=== PATIENT | female | born 1955 | race Caucasian/White ===

== ENCOUNTER 2024-05-23 16:55 | Observation (INO) ==
--- NOTE | 2024-05-23 17:45 | ED Triage Note ---
Date of Service May 23, 2024 Provider in Triage Author: Enzo Alston History of Present Illness This patient was briefly evaluated while in triage. An abbreviated physical exam was performed. This patient is a 69-year-old Female who presents to the ED for evaluation of injuries sustained from fall down attic steps. Pt reports low back pain and radiation into left leg. Pt denies head strike. States right knee pain, and pain in left side. Physical Exam Initial orders for labs and / or imaging were placed and patient was placed in the waiting area until a bed is available. Please see further documentation for the full ED course.
[2024-05-23 18:20] LABS: Basophils # (auto) 0.02 K/uL (0.00-0.20); Basophils % (auto) 0.3 %; Eosinophils # (auto) 0.02 K/uL (0.00-0.50); Eosinophils % (auto) 0.3 %; Hematocrit (blood only) 44.7 % (37.0-47.0); Hemoglobin 14.7 g/dl (12.0-16.0); Immature Granulocytes # (auto) 0.02 K/uL (0.01-0.20); Immature Granulocytes % (auto) 0.3 %; Lymphocytes # (auto) 0.95 K/uL (1.20-3.40); Lymphocytes % (auto) 16.3 %; Mean Corpuscular Hgb Conc 32.9 g/dL (32.0-36.0); Mean Corpuscular Volume 97.4 fL (80.0-100.0); Mean Platelet Volume 11.4 fL (9.4-12.4); Monocytes # (auto) 0.32 K/uL (0.11-0.59); Monocytes % (auto) 5.5 %; Neutrophils % (auto) 77.3 %; Platelet Count 123 K/uL (130-400); RDW Coefficient of Variation 14.6 % (11.5-14.5); RDW Standard Deviation 52.2 fL (36.4-46.3); Red Blood Count 4.59 M/uL (4.20-5.40); White Blood Count 5.83 K/ul (4.8-10.8)
--- NOTE | 2024-05-23 18:23 | Emergency Department Note ---
Impression & Plan Fall, Lumbar contusion, Contusion of flank, Contusion of knee, right ED Provider Note NAME: LEXI JAIN AGE: 69 SEX: F : 1955 ARRIVES VIA: Walk-In INFORMANT: Patient, ED PROVIDER(S): Enzo Alston DO CHIEF COMPLAINT: Fall HPI: The patient is a 69-year-old female who presented to the emergency department after a fall. Approximately 2 PM today she fell down approximately 4-5 steps. She mostly injured her left flank. She denies having any weakness in the legs but has severe pain with any ambulation. She has pain that goes up into her left posterior chest. She has a history of ITP. She states that she does not take any blood thinners. She does not complain of any headache or loss of conscious. She denies having any neck pain. ROS: See above HPI for pertinent positives & negatives. A total of 10 systems reviewed and were otherwise negative. PAST MEDICAL HISTORY: See Below PAST SURGICAL HISTORY: See Below FAMILY HISTORY: See Below SOCIAL HISTORY: See Below HOME MEDICATIONS: See Below ALLERGIES: See Below VITALS: See Below PHYSICAL EXAMINATION: GENERAL: The patient is awake and alert. She is very anxious and appears to be uncomfortable. EYES: The conjunctivae are clear. The pupils are round and reactive. EARS, NOSE, MOUTH AND THROAT: The nose is without any evidence of any deformity. NECK: The neck is nontender and supple. RESPIRATORY: Normal respiratory effort is noted there is no evidence of wheezing rhonchi or rales CARDIOVASCULAR: Regular rate and rhythm noted there no murmurs rubs or gallops normal S1 normal S2. GASTROINTESTINAL: There is left upper quadrant tenderness to palpation which is moderate. There is no specific guarding or rigidity. BACK: Midline tenderness was noted over the low lumbar spine as well as the left paravertebral musculature. Range of motion is intact but severely painful with any rotation or flexion. MUSCULOSKELETAL/EXTREMITIES: There is no evidence of gross deformity full range of motion is noted in the hips and shoulders. There is tenderness with abrasion over the right kneecap. Range of motion appears intact but limited secondary to pain. SKIN: There is no obvious evidence of any rash. There are no petechiae, pallor or cyanosis noted. NEUROLOGIC: Patient is awake alert and oriented x3 strength is symmetric patellar reflexes are 2+ bilaterally MEDICAL DECISION MAKING: The patient is a 69-year-old female who presented to the emergency department after a fall. The patient fell down multiple stairs. She did have significant left-sided flank pain. Because of the patient's degree of pain she was treated with IV pain medication. She was reevaluated multiple times. I discussed the patient's laboratory and radiographic studies with her. Likely the patient did not appear to have any signs of intra-abdominal or intrathoracic trauma. She had no obvious lumbar or thoracic injury. The patient had very poorly controlled pain despite aggressive pain medication in the emergency department. For this reason I discussed her condition with the on-call [facility] hospitalist. Triage Nursing notes reviewed. Prior medical records reviewed Vital Signs: reviewed and remarkable for no significant abnormalities Differential diagnosis: Fracture, dislocation, contusion, intra-abdominal, pneumothorax, intrathoracic, intracranial, neurologic, compartment syndrome, rhabdomyolysis, as well as other pathologies. ER treatment provided: See below Diagnostics interpreted by me: ECG: none Cardiac Monitoring: An order was placed for continuous cardiac monitoring. The monitor shows a rate of 102 bpm with sinus tachycardia. Laboratory studies: As stated above and show below. Imaging studies: See below. Radiographic imaging was reviewed by myself Consultation(s): I discussed this case with Dr. Sandoval who is on-call for the [facility]ist group. Past Med/Surg History Problem List (Updated 05/23/24 @ 23:30 by Enzo Alston DO) Contusion of knee, right (Acute) Contusion of flank (Acute) Lumbar contusion (Acute) Fall (Acute) Obesity (BMI 30.0-34.9) Laryngopharyngeal reflux Atypical nevus of back Epidermal cyst of eyelid Dermatochalasis of both upper eyelids Lumbar back pain with radiculopathy affecting left lower extremity Abnormal mammogram of right breast Thrombocytopenia Tear of tendon of left ankle Arthritis Lipoma of lateral chest wall Cholelithiasis Left ankle pain Atypical nevus of nose Snoring Knee pain, bilateral Lipoma of abdominal wall Hyperlipidemia Cervical pain (neck) Situational mixed anxiety and depressive disorder Lumbar degenerative disc disease (Chronic) Chronic idiopathic thrombocytopenic purpura (Chronic) Medical History Encounter for pre-operative examination Lumbar back pain with radiculopathy affecting left lower extremity Nausea and vomiting after administration of anesthetic agent Lumbar degenerative disc disease Hx of shortness of breath related to allergies, reason for prn inh. Situational mixed anxiety and depressive disorder Hyperlipidemia Chronic idiopathic thrombocytopenic purpura Cervical pain (neck) off and on, ROM WNL Arthritis Oral aphthous ulcer 03/14/24-none currently, but gets occasionally due to her ITP Surgical History History of laryngoscopy S/P excision of lipoma under left arm near ribs History of esophagogastroduodenoscopy (EGD) Hx of colonoscopy History of carpal tunnel release bilat. History of hysterectomy History of appendectomy Family History Brother Bipolar disorder Leukemia Cancer Father Heart disease Myocardial infarction Seizures Sister Breast cancer Grandmother Ovarian cancer Mother Parkinson disease Denies family history of Prostate cancer Colorectal cancer Social History Smoking Status: Never smoker Second Hand Exposure: Yes (hx as child); Do You Dip or Chew Tobacco: No; Hx Alcohol Use: No Hx Substance Use: No Preferred Language: Macedonian Communication Ability: Effective Visual Impairment: No Limitations Hearing Ability: Normal Puttying And Calking Supervisor Required: No Beliefs That Will Affect Care: None marital status: Current Living Situation: Spouse current occupational status: other current occupation: homemaker How many Children do You have: 2 Feels Safe at Home: Yes Childhood Exposure to Second-Hand Smoke: No during the past year weight has: increased > 10 lbs Dental Care, Regularly: Yes Physical Activity Frequency: 3-4 Times per Week Assistive Devices: Glasses Allergies Allergies Allergy/AdvReac Type Severity Reaction Status Date / Time erythromycin base Allergy severe Verified 04/16/24 08:13 vomiting oseltamivir [From Tamiflu] Allergy Unknown Verified 04/16/24 08:13 prednisone Allergy itching Verified 04/16/24 08:13 all over Home Meds Home Medications Medication Instructions Recorded Confirmed cetirizine 10 mg capsule (All Day 10 mg PO DAILY PRN Allergy Symptoms 11/03/21 05/01/24 Allergy (cetirizine)) esomeprazole magnesium 40 mg 40 mg PO .AM 04/16/24 05/01/24 capsule,delayed release (Nexium) famotidine 40 mg tablet (Pepcid) 40 mg PO HS 04/16/24 05/01/24 Previous Rx's Medication Instructions Recorded spacer tube #1 ea 05/16/21 albuterol sulfate 90 mcg/actuation 2 puff inhalation QID PRN 08/12/23 aerosol inhaler (ProAir HFA) shortness of breath or wheezing #8.5 grams lorazepam 0.5 mg tablet 0.5 mg PO QID PRN anxiety #60 tabs 01/14/24 cyclobenzaprine 5 mg tablet 5 mg PO TID PRN muscle spasm #90 02/06/24 tabs Magic Mouthwash 300 mL mouthwash 5 ml mucous membrane Q2H PRN sore 03/24/24 throat #300 mL phentermine 15 mg capsule 15 mg PO DAILY #30 caps 04/16/24 Results & Data (ED) Vital Signs Vital Signs - 24 hr 05/23/24 17:41 05/23/24 20:22 05/23/24 22:00 Temperature 36.3 C L Temperature Source Temporal Artery Scan Pulse Rate 128 H Pulse Rate [Finger] 95 H 102 H Respiratory Rate 18 16 20 Respiratory Effort / Characteristics Non-Labored Non-Labored Spontaneous Non-Labored Spontaneous Respiratory Depth Normal Normal Normal Respiratory Pattern Regular Regular Regular Blood Pressure 195/47 H Blood Pressure [Right Arm] 145/87 H 149/87 H Blood Pressure Mean 96 Blood Pressure Mean [Right Arm] 106 107 Pulse Oximetry 95 96 94 Oxygen Delivery Method Room Air Room Air Room Air Sepsis Recent Fever Within 48 Hours No Sepsis New/Unexplained Change in Mental Status N/A Sepsis Action Taken by Nursing No Action Required Home Medications Current Medication List: was personally reviewed by me Laboratory Data Attestation: I reviewed the patient's lab results. 05/23/24 18:02 05/23/24 18:02 Lab Results 05/23/24 05/23/24 Range/Units 18:02 18:58 WBC 5.83 (4.8-10.8) K/ul RBC 4.59 (4.20-5.40) M/uL Hgb 14.7 (12.0-16.0) g/dl Hct 44.7 (37.0-47.0) % MCV 97.4 (80.0-100.0) fL MCH 32.0 (25.0-34.0) pg MCHC 32.9 (32.0-36.0) g/dL RDW Std Deviation 52.2 H (36.4-46.3) fL RDW Coeff of Caty 14.6 H (11.5-14.5) % Plt Count 123 L (130-400) K/uL MPV 11.4 (9.4-12.4) fL Immature Gran % (Auto) 0.3 % Neut % (Auto) 77.3 % Lymph % (Auto) 16.3 % [place] % (Auto) 5.5 % Eos % (Auto) 0.3 % Baso % (Auto) 0.3 % Neut # (Auto) 4.50 (1.40-6.50) K/uL Lymph # (Auto) 0.95 L (1.20-3.40) K/uL [place] # (Auto) 0.32 (0.11-0.59) K/uL Eos # (Auto) 0.02 (0.00-0.50) K/uL Baso # (Auto) 0.02 (0.00-0.20) K/uL Immature Gran # (Auto) 0.02 (0.01-0.20) K/uL Sodium 141 (136-145) mmol/L Potassium 4.5 (3.5-5.1) mmol/L Chloride 108 H (98-107) mmol/L Carbon Dioxide 25 (21-32) mmol/L Anion Gap 8 (3-11) BUN 21 (6-23) mg/dl Creatinine 1.32 H (0.6-1.2) mg/dl Est Cr Clr Drug Dosing Not Reportable eGFR 43.98 BUN/Creatinine Ratio 15.9 (10-20) Glucose 123 H (70-99(Fasting)) mg/dl Calcium 9.8 (8.6-10.3) mg/dl Total Bilirubin 0.3 (0.2-1.0) mg/dl AST 32 (13-39) U/L ALT 42 (7-52) U/L Alkaline Phosphatase 113 H (34-104) U/L Total Protein 7.6 (6.0-8.3) gm/dl Albumin 4.6 (3.4-5.0) gm/dl Globulin 3.0 (2.5-4.0) gm/dl Albumin/Globulin Ratio 1.5 (0.9-2) Urine Color Yellow Urine Appearance Clear (Clear) Urine pH 6.5 (4.5-7.5) Ur Specific [place] 1.025 (1.000-1.030) Urine Protein Negative (Negative) Urine Glucose (UA) Negative (Negative) Urine Ketones Negative (Negative) Urine Blood Trace H (Negative) Urine Nitrite Negative (Negative) Urine Bilirubin Negative (Negative) Urine Urobilinogen Negative (Negative) Ur Leukocyte Esterase Negative (Negative) Urine WBC (Auto) 0-5 (0-5) /hpf Urine RBC (Auto) 3-5 H (0-2) /hpf U Hyaline Cast (Auto) 0-2 (0-2) /lpf U Epithel Cells (Auto) 0-2 (0-2) /hpf Urine Bacteria (Auto) None Seen (None Seen) Administered Medications Hydromorphone HCl (Hydromorphone Inj 0.5 Mg/0.5 Ml Syr) 0.5 mg IV Q15M PRN PRN Reason: Pain Stop: 06/06/24 20:13 Last Admin: 05/23/24 21:21 Dose: 0.5 mg Documented By: Admin: 05/23/24 20:17 Dose: 0.5 mg Documented By: KAYLYN Discontinued Medications Baclofen (Baclofen 20 Mg Tab) 20 mg PO NOW STA Stop: 05/23/24 21:45 Last Admin: 05/23/24 22:04 Dose: Not Given Documented By: TIARRA Cyclobenzaprine HCl (Cyclobenzaprine Hcl 10 Mg Tab) 10 mg PO NOW STA Stop: 05/23/24 21:46 Last Admin: 05/23/24 21:53 Dose: 10 mg Documented By: KAYLYN Dexamethasone (Dexamethasone Sod Inj 4 Mg/Ml Vial) 10 mg IV NOW STA Stop: 05/23/24 21:55 Last Admin: 05/23/24 22:16 Dose: 10 mg Documented By: TIARRA Hydromorphone HCl (Hydromorphone Inj 0.5 Mg/0.5 Ml Syr) 0.5 mg IV NOW STA Stop: 05/23/24 18:18 Last Admin: 05/23/24 18:27 Dose: 0.5 mg Documented By: PAVEL Ioversol (Optiray 320 100ml) 90 ml IV ONCE ONE Stop: 05/23/24 18:51 Last Admin: 05/23/24 18:50 Dose: 90 ml Documented By: СВЕТЛАНА Lidocaine (Lidocaine 5% 1 Patch) 1 patch TD NOW STA Stop: 05/23/24 21:52 Last Admin: 05/23/24 22:15 Dose: 1 patch Documented By: TIARRA Ondansetron HCl (Ondansetron Inj 2 Mg/Ml 2 Ml Vial) 4 mg IV NOW STA Stop: 05/23/24 18:18 Last Admin: 05/23/24 18:27 Dose: 4 mg Documented By: PAVEL Imaging Data Attestation: I personally reviewed and interpreted this imaging study as follows: My Impression: CT of the chest was obtained in the emergency department. My interpretation is no free air or definite infiltrate, final report below. CT of the abdomen and pelvis was obtained in the emergency department. My interpretation is no free fluid or signs of bowel obstruction, final report below. CT the brain was obtained in the emergency department. My interpretation is no intracranial hemorrhage or mass effect, final report below. Radiologist's Impression: Abdomen/Pelvis CT 05/23/24 17:45 EXAM: CT abd pelvis IV con only CLINICAL HISTORY: Fell down approx 4-5 attic steps today. C/o lower back pain radiating down left leg. Abrasion to right knee. Denies head trauma. Denies use of blood thinners. Hx of ITP. 90 ml opti 320 PW/EB INPATIENT TECHNIQUE: CT of the abdomen and pelvis was performed with contrast, with the following protocol: axial images with, and reconstructed coronal and sagittal images. 90 ml opti 320 was administered intravenously. One of the following dose reduction techniques was utilized for this exam: Automated exposure control, adjustment of the mA and/or kV according to patient size, and use of iterative reconstruction. COMPARISON: No previous study for comparison. FINDINGS: Abdomen: Liver: Mildly enlarged fatty liver. No focal lesions, cysts, or masses were identified. Hepatic vasculature and biliary ducts are unremarkable. Gallbladder and Biliary System: The gallbladder is normal in size and shape. No wall thickening, pericholecystic fluid, or gallstones were identified. The common bile duct is normal in caliber without dilation. Pancreas: Pancreatic head, body, and tail are visualized and appear normal in size and density. No pancreatic masses or calcifications were noted. The pancreatic duct is not dilated. Spleen: Normal in size, shape, and density. No splenic lesions or masses were identified. Kidneys and Adrenal Glands: Both kidneys are normal in size, shape, and position. Cortical thickness is within normal limits. No renal calculi or hydronephrosis. Adrenal glands are unremarkable with no evidence of masses or hyperplasia. Pelvis: Urinary Bladder: Normal in contour and wall thickness. No intraluminal lesions identified. Uterus: Not visualized likely excised. Vagina: Normal in contour and wall thickness. Peritoneal and Retroperitoneal Structures: No free fluid or abnormal fluid collections were identified within the abdomen or pelvis. No lymphadenopathy was noted. Bowel: Evidence of appendicectomy with surgical jonathan. The visualized bowel loops are normal in caliber and appearance. No evidence of bowel obstruction or wall thickening. Bones and Soft Tissues: Degenerative changes of the spine and sacroiliac joints. Pelvic bones and soft tissues are unremarkable. No fractures or abnormal masses were identified. IMPRESSION: Fatty hepatomegaly. Appendicectomy and hysterectomy. No evidence of fractures, dislocations of acute traumatic injury. Electronically signed by Gudelia Herr 05-23-2024 8:23 PM Knee X-Ray 05/23/24 17:45 EXAM: Radiographs of the Right Knee 3 Views INDICATION: Posttraumatic pain. TECHNIQUE: Three views of the right knee. COMPARISON: No relevant prior studies available. FINDINGS: Bones/joints: There is minimal degenerative patellofemoral cortical surface irregularity. Articular surfaces are otherwise unremarkable. There is no fracture, erosion or loose body. No dislocation. Soft tissues: No abnormality noted. No radiopaque foreign body noted. IMPRESSION: Mild patellofemoral primary osteoarthritis. No acute abnormality. ACT 112: Negative or not required by law. Electronically signed by Deborah Bartlett 05-23-2024 6:[address] 05/23/24 17:45 EXAM: CT lumbar spine w con CLINICAL HISTORY: Fell down approx 4-5 attic steps today. C/o lower back pain radiating down left leg. Abrasion to right knee. Denies head trauma. Denies use of blood thinners. Hx of ITP. 90 ml opti 320 PW/EB INPATIENT TECHNIQUE: CT scan with contrast lumbar spine done. 90 ml opti 320 was administered for post-contrast images. Axial images were obtained with reformatted coronal and sagittal images and submitted for interpretation. One of the following dose reduction techniques was utilized for this exam: Automated exposure control, adjustment of the mA and/or kV according to patient size, and use of iterative reconstruction. COMPARISON: None. FINDINGS: Vertebrae: Straightening of the lumbar vertebrae. No fractures, lytic or sclerotic lesions. Decreased bone density. Marginal osteophytosis of the lumbar vertebral end plates. Intervertebral Discs: Narrowed lumbar disc spaces. OBX.5.1OBX.5.1.1 L2-3 7/OBX.5.1.1OBX.5.1.2 L5-S1 mild disc herniations./OBX.5.1.2/OBX.5.1 Spinal Canal and Neural Foramina: OBX.5.1OBX.5.1.1 Mild spinal canal narrowing at L2-3 /OBX.5.1.1OBX.5.1.2 L5-S1 levels./OBX.5.1.2/OBX.5.1 Neural foramina are patent bilaterally at all levels. No evidence of nerve root compression. Facet Joints: Multilevel facet arthropathy. Mild bilateral sacroiliitis. Soft Tissues: Normal appearance of the paraspinal soft tissues. No abnormal masses, fluid collections, or signs of inflammation. Vascular Structures: Tiny vascular calcifications of the aorta and its branches. No evidence of aneurysm, dissection, or significant atherosclerosis. IMPRESSION: OBX.5.1OBX.5.1.11. Spine degenerative changes with L2-3 /OBX.5.1.1OBX.5.1.2 L5-S1 disc herniations./OBX.5.1.2/OBX.5.1 2. No evidence of Acute displaced fractures or dislocation. Electronically signed by Gudelia Herr 05-23-2024 7:[address] 05/23/24 17:45 EXAM: CT thoracic spine w con CLINICAL HISTORY: Fell down approx 4-5 attic steps today. C/o lower back pain radiating down left leg. Abrasion to right knee. Denies head trauma. Denies use of blood thinners. Hx of ITP. 90 ml opti 320 PW/EB INPATIENT TECHNIQUE: Multiple axial images of CT thoracic spine with contrast was submitted in bone and soft tissue window. 90 ml opti 320 was administered for post contrast images. One of the following dose reduction techniques were utilized for this exam: Automated exposure control, adjustment of the mA and/or kV according to patient size, and use of iterative reconstruction. COMPARISON: Multiple CTs on the same day. FINDINGS: Vertebrae: Normal alignment of the thoracic vertebrae. No fractures, lytic or sclerotic lesions. Decreased bone density. Marginal osteophytosis of the thoracic vertebral end plates. Intervertebral Discs: Narrowed disc spaces with multilevel disc calcification. No evidence of disc herniation. Spinal Canal and Neural Foramina: Spinal canal is of normal caliber with no evidence of spinal stenosis. Neural foramina are patent bilaterally at all levels. No evidence of nerve root compression. Facet Joints: Mild multilevel costovertebral, costocervical and facet arthropathy. Soft Tissues: Normal appearance of the paraspinal soft tissues. No abnormal masses, fluid collections, or signs of inflammation. Vascular Structures: Vascular calcification of the aorta and its branches. IMPRESSION: 1. Spine degenerative changes. 2. No evidence of acute displaced fractures. Electronically signed by Gudelia Herr 05-23-2024 7:[address] 05/23/24 18:17 EXAM: CT cervical spine wo con CLINICAL HISTORY: Fell down approx 4-5 attic steps today. C/o lower back pain radiating down left leg. Abrasion to right knee. Denies head trauma. Denies use of blood thinners. Hx of ITP. PW/EB INPATIENT TECHNIQUE: CT scan of the cervical spine was performed without the administration of intravenous contrast. Contiguous axial images were obtained from the skull base to the upper thoracic spine. Coronal and sagittal reformatted images were also reviewed. One of the following dose reduction techniques was utilized for this exam. Automated exposure control, adjustment of the mA and/or kV according to patient size, and use of iterative reconstruction. COMPARISON: Multiple CTs on the same day FINDINGS: Vertebrae: The vertebral bodies are normal in height and alignment. No evidence of acute fracture or dislocation. The cortical and trabecular bone patterns are normal. No signs of lytic or sclerotic lesions. Normal configuration of the posterior elements. Marginal osteophytosis of the cervical vertebral end plates. Intervertebral Discs: OBX.5.1OBX.5.1.1 Narrowed C2-3, C5-6 /OBX.5.1.1OBX.5.1.2 C6-7 disc spaces./OBX.5.1.2/OBX.5.1 No calcifications or ossifications noted within the discs. Facet Joints: Degenerative changes of the atlantoaxial joints. Multilevel facet arthropthy. OBX.5.1OBX.5.1.1 C2-3, C5-6 /OBX.5.1.1OBX.5.1.2 C6-7 neurocentral arthropathy./OBX.5.1.2/OBX.5.1 Neural Foramina: The neural foramina are patent bilaterally at all levels. No evidence of foraminal narrowing or nerve root compression. Prevertebral Soft Tissues: The prevertebral soft tissues are normal in thickness without evidence of mass or abnormal fluid collection. Additional Findings: No other significant findings are noted in the visualized soft tissue structures or bony elements. IMPRESSION: Spine degenerative changes. No evidence of acute fracture or dislocation. Electronically signed by Gudelia Herr 05-23-2024 8:[address] 05/23/24 18:17 EXAM: CT chest diagnostic w con CLINICAL HISTORY: Fell down approx 4-5 attic steps today. C/o lower back pain radiating down left leg. Abrasion to right knee. Denies head trauma. Denies use of blood thinners. Hx of ITP. 90 ml opti 320 PW/EB INPATIENT TECHNIQUE: Contiguous 3.[address] images of the chest were acquired with the administration of intravenous contrast. Coronal and sagittal reconstructions were obtained. 90 ml opti 320 was administered for post-contrast images. One of the following dose reduction techniques was utilized for this exam: Automated exposure control, adjustment of the mA and/or kV according to patient size, and use of iterative reconstruction COMPARISON: 05/17/2023 was reviewed. FINDINGS: Lungs: Lungs are clear with no evidence of consolidation, collapse, or focal lesions. No ground-glass opacities or interstitial changes. No pleural effusion or pleural thickening. Mediastinum: No mediastinal mass or abnormal lymphadenopathy. Normal appearance of the thymus. Hilar Structures: Normal size and configuration, no enlargement. Heart and Great Vessels: Normal heart size and configuration. No pericardial effusion. Normal caliber and course of the thoracic aorta and other great vessels. No dissection or aneurysm. Vascualr calcification of the aorta and its branches. Normal enhancement of the great vessels post-contrast. Pulmonary Arteries: No evidence of pulmonary embolism. Normal size and course of the pulmonary arteries. Esophagus: Normal course and caliber. No masses or dilatation. Bones: No fractures or lytic/sclerotic lesions. Normal bone density and alignment. No evidence of rib fractures. Spine degenerative changes with multilevel disc calcification. Chest Wall: No masses or soft tissue abnormalities. Upper Abdomen: Visualized portions of the liver, spleen, pancreas, adrenal glands, and kidneys are normal. No abnormalities were noted in the visualized upper abdominal organs. Thyroid: Normal size and morphology. No nodules or masses. IMPRESSION: 1. No evidence of fracture, dislocation or significant acute traumatic injury. 2. Spine degenerative changes. Electronically signed by Gudelia Herr 05-23-2024 8:[address] 05/23/24 18:17 EXAM: CT head/brain wo con CLINICAL HISTORY: Fell down approx 4-5 attic steps today. C/o lower back pain radiating down left leg. Abrasion to right knee. Denies head trauma. Denies use of blood thinners. Hx of ITP. PW/EB INPATIENT TECHNIQUE: Axial non-contrast CT scan of the brain was performed from the skull base to the high parietal region. One of the following dose reduction techniques were utilized for this exam: Automated exposure control, adjustment of the mA and/or kV according to patient size, use of iterative reconstruction. CTDI: , DLP: COMPARISON: Multiple CTs on the same day FINDINGS: Brain Parenchyma: Normal attenuation of the cerebral hemispheres, cerebellum, and brainstem. No evidence of acute infarct, hemorrhage, or mass effect. No abnormal areas of hypo- or hyperattenuation. Ventricular System: Prominent lateral ventricles. Subarachnoid Spaces: Accentuated cortical sulci and cisterns. No evidence of subarachnoid hemorrhage or extra-axial fluid collections. Cerebellum and Brainstem: Normal size and signal. No masses, lesions, or areas of abnormal signal. Orbits: Normal appearance of the globes, optic nerves, and extraocular muscles. No evidence of orbital masses or abnormal signals. Sinuses: Clear paranasal sinuses. No evidence of sinusitis or mucosal thickening. Mastoid Air Cells: Clear mastoid air cells. No evidence of mastoiditis. Skull and Meninges: Normal skull morphology. No displaced calvarial or skull base fractures. IMPRESSION: 1. Involutional brain changes. 2. No evidence of acute intracranial injury. Electronically signed by Gudelia Herr 05-23-2024 8:04 PM Discharge Plan Visit Data Chief Complaint: Fall Stated Complaint: FALL ED Provider: Enzo Alston Discharge Problem: Fall, Lumbar contusion, Contusion of flank, Contusion of knee, right Patient Disposition: Being Evaluated by Hospitalist Forms Stand Alone Forms: My [facility] [place] [employer] Prescriptions Prescriptions: No Action albuterol sulfate [ProAir HFA] 90 mcg/actuation HFA aerosol inhaler 2 puff inhalation QID PRN (Reason: shortness of breath or wheezing) Qty: 8.5 1RF lorazepam 0.5 mg tablet 0.5 mg PO QID PRN (Reason: anxiety) Qty: 60 2RF cyclobenzaprine 5 mg tablet 5 mg PO TID PRN (Reason: muscle spasm) Qty: 90 1RF (DME) spacer tube See Rx Instructions .Route .MEDSUPPLY Qty: 1 0RF Rx Instructions: As directed All Day Allergy (cetirizine) 10 mg capsule 10 mg PO DAILY PRN (Reason: Allergy Symptoms) esomeprazole magnesium [Nexium] 40 mg capsule,delayed release(DR/EC) 40 mg PO .AM famotidine [Pepcid] 40 mg tablet 40 mg PO HS phentermine 15 mg capsule 15 mg PO DAILY Qty: 30 0RF Rx Instructions: must administer 2 hours after breakfast Magic Mouthwash 300 mL mouthwash 5 ml mucous membrane Q2H PRN (Reason: sore throat) Qty: 300 0RF Rx Instructions: Benadryl 12.5 mg/5 mL oral elixir; Maalox 200 mg-200 mg-20 mg/5 mL oral suspension; Xylocaine Viscous 2 % mucosal solution;[Generic substitution ok] 1:1:1 compound Per 300 mL Referrals Referrals: John Magaña DO [Primary Care Provider] - Discharge Problem: Fall Qualifiers: Encounter type: initial encounter Qualified Code(s): W19.XXXA - Unspecified fall, initial encounter Lumbar contusion Qualifiers: Encounter type: initial encounter Qualified Code(s): S30.0XXA - Contusion of lower back and pelvis, initial encounter Contusion of flank Qualifiers: Encounter type: initial encounter Qualified Code(s): S30.1XXA - Contusion of abdominal wall, initial encounter Contusion of knee, right Qualifiers: Encounter type: initial encounter Qualified Code(s): S80.01XA - Contusion of right knee, initial encounter
[2024-05-23] MEDS: ONDANSETRON INJ 2 MG/ML 2 ML VIAL IV STA (18:27)
[2024-05-23] MEDS: HYDROmorphone INJ 0.5 MG/0.5 ML SYR IV STA (18:27)
[2024-05-23 18:37] LABS: Alanine Aminotransferase 42 U/L (7-52); Albumin Globulin Ratio 1.5 (0.9-2); Albumin Level 4.6 gm/dl (3.4-5.0); Alkaline Phosphatase 113 U/L (34-104); Anion Gap 8 (3-11); Aspartate Aminotransferase 32 U/L (13-39); BUN Creatinine Ratio 15.9 (10-20); Bilirubin,Total 0.3 mg/dl (0.2-1.0); Blood Urea Nitrogen 21 mg/dl (6-23); Calcium 9.8 mg/dl (8.6-10.3); Carbon Dioxide 25 mmol/L (21-32); Chloride 108 mmol/L (98-107); Glucose 123 mg/dl (70-99(Fasting)); Potassium 4.5 mmol/L (3.5-5.1); Sodium 141 mmol/L (136-145); Total Protein 7.6 gm/dl (6.0-8.3)
--- NOTE | 2024-05-23 18:40 | XRay Report ---
EXAM: Radiographs of the Right Knee 3 Views INDICATION: Posttraumatic pain. TECHNIQUE: Three views of the right knee. COMPARISON: No relevant prior studies available. FINDINGS: Bones/joints: There is minimal degenerative patellofemoral cortical surface irregularity. Articular surfaces are otherwise unremarkable. There is no fracture, erosion or loose body. No dislocation. Soft tissues: No abnormality noted. No radiopaque foreign body noted. IMPRESSION: Mild patellofemoral primary osteoarthritis. No acute abnormality. ACT 112: Negative or not required by law. Electronically signed by Deborah Bartlett 05-23-2024 6:40 PM
[2024-05-23] MEDS: OPTIRAY 320 100ml IV ONE (18:50)
[2024-05-23 19:25] LABS: Appearance Urine Clear (Clear); Bacteria Urine Automated None Seen (None Seen); Bilirubin Urine Negative (Negative); Blood Urine Trace (Negative); Cast Urine Automated 0-2 /lpf (0-2); Color Urine Yellow; Epithelial Cell Urine Auto 0-2 /hpf (0-2); Glucose Urine UA Negative (Negative); Ketones Urine Negative (Negative); Leukocyte Esterase Urine Negative (Negative); Nitrite Urine Negative (Negative); Protein Urine Negative (Negative); Specific Gravity Urine 1.025 (1.000-1.030); Urobilinogen Urine Negative (Negative); WBC Urine Automated 0-5 /hpf (0-5); pH Urine 6.5 (4.5-7.5)
--- NOTE | 2024-05-23 19:55 | CT Scan Report ---
EXAM: CT thoracic spine w con CLINICAL HISTORY: Fell down approx 4-5 attic steps today. C/o lower back pain radiating down left leg. Abrasion to right knee. Denies head trauma. Denies use of blood thinners. Hx of ITP. 90 ml opti 320 PW/EB INPATIENT TECHNIQUE: Multiple axial images of CT thoracic spine with contrast was submitted in bone and soft tissue window. 90 ml opti 320 was administered for post contrast images. One of the following dose reduction techniques were utilized for this exam: Automated exposure control, adjustment of the mA and/or kV according to patient size, and use of iterative reconstruction. COMPARISON: Multiple CTs on the same day. FINDINGS: Vertebrae: Normal alignment of the thoracic vertebrae. No fractures, lytic or sclerotic lesions. Decreased bone density. Marginal osteophytosis of the thoracic vertebral end plates. Intervertebral Discs: Narrowed disc spaces with multilevel disc calcification. No evidence of disc herniation. Spinal Canal and Neural Foramina: Spinal canal is of normal caliber with no evidence of spinal stenosis. Neural foramina are patent bilaterally at all levels. No evidence of nerve root compression. Facet Joints: Mild multilevel costovertebral, costocervical and facet arthropathy. Soft Tissues: Normal appearance of the paraspinal soft tissues. No abnormal masses, fluid collections, or signs of inflammation. Vascular Structures: Vascular calcification of the aorta and its branches. IMPRESSION: 1. Spine degenerative changes. 2. No evidence of acute displaced fractures. Electronically signed by Gudelia Herr 05-23-2024 7:55 PM
--- NOTE | 2024-05-23 19:59 | CT Scan Report ---
EXAM: CT lumbar spine w con CLINICAL HISTORY: Fell down approx 4-5 attic steps today. C/o lower back pain radiating down left leg. Abrasion to right knee. Denies head trauma. Denies use of blood thinners. Hx of ITP. 90 ml opti 320 PW/EB INPATIENT TECHNIQUE: CT scan with contrast lumbar spine done. 90 ml opti 320 was administered for post-contrast images. Axial images were obtained with reformatted coronal and sagittal images and submitted for interpretation. One of the following dose reduction techniques was utilized for this exam: Automated exposure control, adjustment of the mA and/or kV according to patient size, and use of iterative reconstruction. COMPARISON: None. FINDINGS: Vertebrae: Straightening of the lumbar vertebrae. No fractures, lytic or sclerotic lesions. Decreased bone density. Marginal osteophytosis of the lumbar vertebral end plates. Intervertebral Discs: Narrowed lumbar disc spaces. OBX.5.1OBX.5.1.1 L2-3 7/OBX.5.1.1OBX.5.1.2 L5-S1 mild disc herniations./OBX.5.1.2/OBX.5.1 Spinal Canal and Neural Foramina: OBX.5.1OBX.5.1.1 Mild spinal canal narrowing at L2-3 /OBX.5.1.1OBX.5.1.2 L5-S1 levels./OBX.5.1.2/OBX.5.1 Neural foramina are patent bilaterally at all levels. No evidence of nerve root compression. Facet Joints: Multilevel facet arthropathy. Mild bilateral sacroiliitis. Soft Tissues: Normal appearance of the paraspinal soft tissues. No abnormal masses, fluid collections, or signs of inflammation. Vascular Structures: Tiny vascular calcifications of the aorta and its branches. No evidence of aneurysm, dissection, or significant atherosclerosis. IMPRESSION: OBX.5.1OBX.5.1.11. Spine degenerative changes with L2-3 /OBX.5.1.1OBX.5.1.2 L5-S1 disc herniations./OBX.5.1.2/OBX.5.1 2. No evidence of Acute displaced fractures or dislocation. Electronically signed by Gudelia Herr 05-23-2024 7:59 PM
--- NOTE | 2024-05-23 20:05 | CT Scan Report ---
EXAM: CT head/brain wo con CLINICAL HISTORY: Fell down approx 4-5 attic steps today. C/o lower back pain radiating down left leg. Abrasion to right knee. Denies head trauma. Denies use of blood thinners. Hx of ITP. PW/EB INPATIENT TECHNIQUE: Axial non-contrast CT scan of the brain was performed from the skull base to the high parietal region. One of the following dose reduction techniques were utilized for this exam: Automated exposure control, adjustment of the mA and/or kV according to patient size, use of iterative reconstruction. CTDI: , DLP: COMPARISON: Multiple CTs on the same day FINDINGS: Brain Parenchyma: Normal attenuation of the cerebral hemispheres, cerebellum, and brainstem. No evidence of acute infarct, hemorrhage, or mass effect. No abnormal areas of hypo- or hyperattenuation. Ventricular System: Prominent lateral ventricles. Subarachnoid Spaces: Accentuated cortical sulci and cisterns. No evidence of subarachnoid hemorrhage or extra-axial fluid collections. Cerebellum and Brainstem: Normal size and signal. No masses, lesions, or areas of abnormal signal. Orbits: Normal appearance of the globes, optic nerves, and extraocular muscles. No evidence of orbital masses or abnormal signals. Sinuses: Clear paranasal sinuses. No evidence of sinusitis or mucosal thickening. Mastoid Air Cells: Clear mastoid air cells. No evidence of mastoiditis. Skull and Meninges: Normal skull morphology. No displaced calvarial or skull base fractures. IMPRESSION: 1. Involutional brain changes. 2. No evidence of acute intracranial injury. Electronically signed by Gudelia Herr 05-23-2024 8:04 PM
--- NOTE | 2024-05-23 20:06 | CT Scan Report ---
EXAM: CT chest diagnostic w con CLINICAL HISTORY: Fell down approx 4-5 attic steps today. C/o lower back pain radiating down left leg. Abrasion to right knee. Denies head trauma. Denies use of blood thinners. Hx of ITP. 90 ml opti 320 PW/EB INPATIENT TECHNIQUE: Contiguous 3.[address] images of the chest were acquired with the administration of intravenous contrast. Coronal and sagittal reconstructions were obtained. 90 ml opti 320 was administered for post-contrast images. One of the following dose reduction techniques was utilized for this exam: Automated exposure control, adjustment of the mA and/or kV according to patient size, and use of iterative reconstruction COMPARISON: 05/17/2023 was reviewed. FINDINGS: Lungs: Lungs are clear with no evidence of consolidation, collapse, or focal lesions. No ground-glass opacities or interstitial changes. No pleural effusion or pleural thickening. Mediastinum: No mediastinal mass or abnormal lymphadenopathy. Normal appearance of the thymus. Hilar Structures: Normal size and configuration, no enlargement. Heart and Great Vessels: Normal heart size and configuration. No pericardial effusion. Normal caliber and course of the thoracic aorta and other great vessels. No dissection or aneurysm. Vascualr calcification of the aorta and its branches. Normal enhancement of the great vessels post-contrast. Pulmonary Arteries: No evidence of pulmonary embolism. Normal size and course of the pulmonary arteries. Esophagus: Normal course and caliber. No masses or dilatation. Bones: No fractures or lytic/sclerotic lesions. Normal bone density and alignment. No evidence of rib fractures. Spine degenerative changes with multilevel disc calcification. Chest Wall: No masses or soft tissue abnormalities. Upper Abdomen: Visualized portions of the liver, spleen, pancreas, adrenal glands, and kidneys are normal. No abnormalities were noted in the visualized upper abdominal organs. Thyroid: Normal size and morphology. No nodules or masses. IMPRESSION: 1. No evidence of fracture, dislocation or significant acute traumatic injury. 2. Spine degenerative changes. Electronically signed by Gudelia Herr 05-23-2024 8:06 PM
[2024-05-23] MEDS: HYDROmorphone INJ 0.5 MG/0.5 ML SYR IV PRN (20:17)
--- NOTE | 2024-05-23 20:23 | CT Scan Report ---
EXAM: CT cervical spine wo con CLINICAL HISTORY: Fell down approx 4-5 attic steps today. C/o lower back pain radiating down left leg. Abrasion to right knee. Denies head trauma. Denies use of blood thinners. Hx of ITP. PW/EB INPATIENT TECHNIQUE: CT scan of the cervical spine was performed without the administration of intravenous contrast. Contiguous axial images were obtained from the skull base to the upper thoracic spine. Coronal and sagittal reformatted images were also reviewed. One of the following dose reduction techniques was utilized for this exam. Automated exposure control, adjustment of the mA and/or kV according to patient size, and use of iterative reconstruction. COMPARISON: Multiple CTs on the same day FINDINGS: Vertebrae: The vertebral bodies are normal in height and alignment. No evidence of acute fracture or dislocation. The cortical and trabecular bone patterns are normal. No signs of lytic or sclerotic lesions. Normal configuration of the posterior elements. Marginal osteophytosis of the cervical vertebral end plates. Intervertebral Discs: OBX.5.1OBX.5.1.1 Narrowed C2-3, C5-6 /OBX.5.1.1OBX.5.1.2 C6-7 disc spaces./OBX.5.1.2/OBX.5.1 No calcifications or ossifications noted within the discs. Facet Joints: Degenerative changes of the atlantoaxial joints. Multilevel facet arthropthy. OBX.5.1OBX.5.1.1 C2-3, C5-6 /OBX.5.1.1OBX.5.1.2 C6-7 neurocentral arthropathy./OBX.5.1.2/OBX.5.1 Neural Foramina: The neural foramina are patent bilaterally at all levels. No evidence of foraminal narrowing or nerve root compression. Prevertebral Soft Tissues: The prevertebral soft tissues are normal in thickness without evidence of mass or abnormal fluid collection. Additional Findings: No other significant findings are noted in the visualized soft tissue structures or bony elements. IMPRESSION: Spine degenerative changes. No evidence of acute fracture or dislocation. Electronically signed by Gudelia Herr 05-23-2024 8:06 PM
--- NOTE | 2024-05-23 20:24 | CT Scan Report ---
EXAM: CT abd pelvis IV con only CLINICAL HISTORY: Fell down approx 4-5 attic steps today. C/o lower back pain radiating down left leg. Abrasion to right knee. Denies head trauma. Denies use of blood thinners. Hx of ITP. 90 ml opti 320 PW/EB INPATIENT TECHNIQUE: CT of the abdomen and pelvis was performed with contrast, with the following protocol: axial images with, and reconstructed coronal and sagittal images. 90 ml opti 320 was administered intravenously. One of the following dose reduction techniques was utilized for this exam: Automated exposure control, adjustment of the mA and/or kV according to patient size, and use of iterative reconstruction. COMPARISON: No previous study for comparison. FINDINGS: Abdomen: Liver: Mildly enlarged fatty liver. No focal lesions, cysts, or masses were identified. Hepatic vasculature and biliary ducts are unremarkable. Gallbladder and Biliary System: The gallbladder is normal in size and shape. No wall thickening, pericholecystic fluid, or gallstones were identified. The common bile duct is normal in caliber without dilation. Pancreas: Pancreatic head, body, and tail are visualized and appear normal in size and density. No pancreatic masses or calcifications were noted. The pancreatic duct is not dilated. Spleen: Normal in size, shape, and density. No splenic lesions or masses were identified. Kidneys and Adrenal Glands: Both kidneys are normal in size, shape, and position. Cortical thickness is within normal limits. No renal calculi or hydronephrosis. Adrenal glands are unremarkable with no evidence of masses or hyperplasia. Pelvis: Urinary Bladder: Normal in contour and wall thickness. No intraluminal lesions identified. Uterus: Not visualized likely excised. Vagina: Normal in contour and wall thickness. Peritoneal and Retroperitoneal Structures: No free fluid or abnormal fluid collections were identified within the abdomen or pelvis. No lymphadenopathy was noted. Bowel: Evidence of appendicectomy with surgical jonathan. The visualized bowel loops are normal in caliber and appearance. No evidence of bowel obstruction or wall thickening. Bones and Soft Tissues: Degenerative changes of the spine and sacroiliac joints. Pelvic bones and soft tissues are unremarkable. No fractures or abnormal masses were identified. IMPRESSION: Fatty hepatomegaly. Appendicectomy and hysterectomy. No evidence of fractures, dislocations of acute traumatic injury. Electronically signed by Gudelia Herr 05-23-2024 8:23 PM
[2024-05-23] MEDS: CYCLOBENZAPRINE HCL 10 MG TAB PO STA (21:53)
--- NOTE | 2024-05-23 21:58 | History & Physical Report ---
Date of Service May 23, 2024 Assessment & Plan (1) Lumbar contusion: (2) Fall: (3) Lumbar back pain with radiculopathy affecting left lower extremity: (4) Contusion of knee, right: (5) Situational mixed anxiety and depressive disorder: (6) Lumbar degenerative disc disease: (7) Chronic idiopathic thrombocytopenic purpura: Plan Lumbar degenerative disease with left lower extremity radiculopathy- Lumbar contusion, with aggravation of existing condition, status post fall Right knee contusion status post fall Given dexamethasone 10 mg IV now, then 6 mg IV every morning Acetaminophen 650 mg by mouth every 6 hours as needed for mild pain or fever Hydrocodone/APAP, 5/325, 1 p.o. every 4 hours as needed for moderate pain, as used in the outpatient setting Dilaudid 0.5 mg IV every 3 hours as needed for severe pain Lidoderm patch applied daily to lumbar spine Increase cyclobenzaprine from 5 to 10 mg p.o. 3 times daily as needed muscle spasm Consult orthopedic spine surgery when they are available Workup for fall include the following imaging: CT scan of head, cervical spine, thoracic spine, chest, were normal CT scan of abdomen and pelvis showed fatty liver, status post appendectomy and status post hysterectomy CT scan of the lumbar spine showed degenerative spine changes at L2-3, and L5-S1 herniation, with no evidence of acute process History of Present Illness Chief Complaint: The patient presents to the emergency department after a fall that occurred around 2 PM this afternoon, while carrying a box, and fell backwards about 4-5 steps, with resultant severe pain in her low back down her left leg, with any attempted ambulation. Primary Care Provider: John Magaña DO The patient is a 69-year-old female with a past medical history including laryngopharyngeal reflux, chronic low back pain with left lower extremity radiculopathy, chronic ITP, muscle spasm, GERD, anxiety, and weight loss management. She presents to the emergency department as noted above. Allergies Allergy/AdvReac Type Severity Reaction Status Date / Time erythromycin base Allergy severe Verified 04/16/24 08:13 vomiting oseltamivir [From Tamiflu] Allergy Unknown Verified 04/16/24 08:13 prednisone Allergy itching Verified 04/16/24 08:13 all over Home Medications Medication Instructions Recorded Confirmed Type spacer tube #1 ea 05/16/21 05/01/24 Rx cetirizine 10 mg capsule (All Day 10 mg PO DAILY PRN Allergy Symptoms 11/03/21 05/01/24 History Allergy (cetirizine)) albuterol sulfate 90 mcg/actuation 2 puff inhalation QID PRN 08/12/23 05/01/24 Rx aerosol inhaler (ProAir HFA) shortness of breath or wheezing #8.5 grams lorazepam 0.5 mg tablet 0.5 mg PO QID PRN anxiety #60 tabs 01/14/24 05/01/24 Rx cyclobenzaprine 5 mg tablet 5 mg PO TID PRN muscle spasm #90 02/06/24 05/01/24 Rx tabs Magic Mouthwash 300 mL mouthwash 5 ml mucous membrane Q2H PRN sore 03/24/24 05/01/24 Rx throat #300 mL esomeprazole magnesium 40 mg 40 mg PO .AM 04/16/24 05/01/24 History capsule,delayed release (Nexium) famotidine 40 mg tablet (Pepcid) 40 mg PO HS 04/16/24 05/01/24 History phentermine 15 mg capsule 15 mg PO DAILY #30 caps 04/16/24 05/01/24 Rx Past Med/Surg History Problem List (Updated 05/24/24 @ 03:53 by Willian Chiu MD) Contusion of knee, right (Acute) Contusion of flank (Acute) Lumbar contusion (Acute) Fall (Acute) Obesity (BMI 30.0-34.9) Laryngopharyngeal reflux Atypical nevus of back Epidermal cyst of eyelid Dermatochalasis of both upper eyelids Lumbar back pain with radiculopathy affecting left lower extremity Abnormal mammogram of right breast Thrombocytopenia Tear of tendon of left ankle Arthritis Lipoma of lateral chest wall Cholelithiasis Left ankle pain Atypical nevus of nose Snoring Knee pain, bilateral Lipoma of abdominal wall Hyperlipidemia Cervical pain (neck) Situational mixed anxiety and depressive disorder Lumbar degenerative disc disease (Chronic) Chronic idiopathic thrombocytopenic purpura (Chronic) Medical History (Updated 05/24/24 @ 03:53 by Willian Chiu MD) Lumbar degenerative disc disease Situational mixed anxiety and depressive disorder Chronic idiopathic thrombocytopenic purpura Encounter for pre-operative examination Lumbar back pain with radiculopathy affecting left lower extremity Nausea and vomiting after administration of anesthetic agent Hx of shortness of breath related to allergies, reason for prn inh. Hyperlipidemia Cervical pain (neck) off and on, ROM WNL Arthritis Oral aphthous ulcer 03/14/24-none currently, but gets occasionally due to her ITP Surgical History History of laryngoscopy S/P excision of lipoma under left arm near ribs History of esophagogastroduodenoscopy (EGD) Hx of colonoscopy History of carpal tunnel release bilat. History of hysterectomy History of appendectomy Family History Brother Bipolar disorder Leukemia Cancer Father Heart disease Myocardial infarction Seizures Sister Breast cancer Grandmother Ovarian cancer Mother Parkinson disease Denies family history of Prostate cancer Colorectal cancer Social History Smoking Status: Never smoker Tobacco Type: Declines Second Hand Exposure: Yes (As a child); Do You Dip or Chew Tobacco: No; Tobacco Cessation Education Requested by Patient: No Hx Alcohol Use: Yes Alcohol type: beer Hx Substance Use: No Preferred Language: Montene[place]in Communication Ability: Effective Visual Impairment: No Limitations Hearing Ability: Normal Rotary Drier Required: No Beliefs That Will Affect Care: None marital status: Current Living Situation: Spouse current occupational status: other current occupation: homemaker How many Children do You have: 2 Other Information That Helps Us Care for You: No Feels Safe at Home: Yes Safety Concerns: Feels Safe At This Time Childhood Exposure to Second-Hand Smoke: No during the past year weight has: increased > 10 lbs Dental Care, Regularly: Yes Physical Activity Frequency: 3-4 Times per Week Assistive Devices: None Review of Systems Review of Systems: The patient denies chest pain, palpitations, shortness of breath, dyspnea on exertion, cough, lower extremity swelling, sore throat, fevers, chills, sweats, weight change, fatigue, nausea, vomiting, diarrhea , constipation, abdominal pain, pelvic pain, blood in urine or stool, dysuria, urinary frequency or urgency, lightheadedness, dizziness, headache, memory loss, loss of consciousness, rash, abnormal bruising or bleeding, focal or generalized weakness, numbness or tingling in arms, generalized arthralgias or myalgias, neck pain, or night sweats. The review of systems is otherwise negative other than for that already noted above, and at least 10 systems have been reviewed. Physical Exam Physical Exam: The patient is awake, alert and oriented 3, well developed and well nourished, normocephalic and atraumatic, lying in bed and in no acute distress. HEENT--PERRL, EOMI, mucous membranes and oropharynx normal. Neck--supple. No JVD. No bruits. Thyroid normal, trachea midline, no adenopathy. Heart--normal S1 and S2. No murmurs, rubs or gallops. Lungs--clear bilaterally, no respiratory distress, no accessory muscle use. Abdomen--normal bowel sounds and soft. Nontender. Nondistended, no hernias or masses, no organomegaly. Extremities--no cyanosis or clubbing. No edema. There are good distal pulses b/l. Dermatologic--normal skin turgor, normal color, no abnormal lymph nodes, no rash. Neurologic--cranial nerves II through XII grossly intact. Rheumatologic--limited exam due to low back and left leg pain Psychiatric--normal affect. Results & Data Results & Data Vital Signs (Past 12 Hours) Vital Signs Temp Pulse Pulse Resp BP BP Pulse Ox 05/23/24 20:22 95 H 16 145/87 H 96 05/23/24 17:41 36.3 C L 128 H 18 195/47 H 95 O2 Del Method 05/23/24 20:22 Room Air 05/23/24 17:41 Room Air Laboratory Results Laboratory Results WBC 5.83 K/ul (4.8-10.8) 05/23/24 18:02 RBC 4.59 M/uL (4.20-5.40) 05/23/24 18:02 Hgb 14.7 g/dl (12.0-16.0) 05/23/24 18:02 Hct 44.7 % (37.0-47.0) 05/23/24 18:02 MCV 97.4 fL (80.0-100.0) 05/23/24 18:02 MCH 32.0 pg (25.0-34.0) 05/23/24 18:02 MCHC 32.9 g/dL (32.0-36.0) 05/23/24 18:02 RDW Std Deviation 52.2 fL (36.4-46.3) H 05/23/24 18:02 RDW Coeff of Caty 14.6 % (11.5-14.5) H 05/23/24 18:02 Plt Count 123 K/uL (130-400) L 05/23/24 18:02 MPV 11.4 fL (9.4-12.4) 05/23/24 18:02 Immature Gran % (Auto) 0.3 % 05/23/24 18:02 Neut % (Auto) 77.3 % 05/23/24 18:02 Lymph % (Auto) 16.3 % 05/23/24 18:02 [place] % (Auto) 5.5 % 05/23/24 18:02 Eos % (Auto) 0.3 % 05/23/24 18:02 Baso % (Auto) 0.3 % 05/23/24 18:02 Neut # (Auto) 4.50 K/uL (1.40-6.50) 05/23/24 18:02 Lymph # (Auto) 0.95 K/uL (1.20-3.40) L 05/23/24 18:02 [place] # (Auto) 0.32 K/uL (0.11-0.59) 05/23/24 18:02 Eos # (Auto) 0.02 K/uL (0.00-0.50) 05/23/24 18:02 Baso # (Auto) 0.02 K/uL (0.00-0.20) 05/23/24 18:02 Immature Gran # (Auto) 0.02 K/uL (0.01-0.20) 05/23/24 18:02 Sodium 141 mmol/L (136-145) 05/23/24 18:02 Potassium 4.5 mmol/L (3.5-5.1) 05/23/24 18:02 Chloride 108 mmol/L (98-107) H 05/23/24 18:02 Carbon Dioxide 25 mmol/L (21-32) 05/23/24 18:02 Anion Gap 8 (3-11) 05/23/24 18:02 BUN 21 mg/dl (6-23) 05/23/24 18:02 Creatinine 1.32 mg/dl (0.6-1.2) H 05/23/24 18:02 Est Cr Clr Drug Dosing Not Reportable 05/23/24 18:02 eGFR 43.98 05/23/24 18:02 BUN/Creatinine Ratio 15.9 (10-20) 05/23/24 18:02 Glucose 123 mg/dl (70-99(Fasting)) H 05/23/24 18:02 Calcium 9.8 mg/dl (8.6-10.3) 05/23/24 18:02 Total Bilirubin 0.3 mg/dl (0.2-1.0) 05/23/24 18:02 AST 32 U/L (13-39) 05/23/24 18:02 ALT 42 U/L (7-52) 05/23/24 18:02 Alkaline Phosphatase 113 U/L (34-104) H 05/23/24 18:02 Total Protein 7.6 gm/dl (6.0-8.3) 05/23/24 18:02 Albumin 4.6 gm/dl (3.4-5.0) 05/23/24 18:02 Globulin 3.0 gm/dl (2.5-4.0) 05/23/24 18:02 Albumin/Globulin Ratio 1.5 (0.9-2) 05/23/24 18:02 Urine Color Yellow 05/23/24 18:58 Urine Appearance Clear (Clear) 05/23/24 18:58 Urine pH 6.5 (4.5-7.5) 05/23/24 18:58 Ur Specific [place] 1.025 (1.000-1.030) 05/23/24 18:58 Urine Protein Negative (Negative) 05/23/24 18:58 Urine Glucose (UA) Negative (Negative) 05/23/24 18:58 Urine Ketones Negative (Negative) 05/23/24 18:58 Urine Blood Trace (Negative) H 05/23/24 18:58 Urine Nitrite Negative (Negative) 05/23/24 18:58 Urine Bilirubin Negative (Negative) 05/23/24 18:58 Urine Urobilinogen Negative (Negative) 05/23/24 18:58 Ur Leukocyte Esterase Negative (Negative) 05/23/24 18:58 Urine WBC (Auto) 0-5 /hpf (0-5) 05/23/24 18:58 Urine RBC (Auto) 3-5 /hpf (0-2) H 05/23/24 18:58 U Hyaline Cast (Auto) 0-2 /lpf (0-2) 05/23/24 18:58 U Epithel Cells (Auto) 0-2 /hpf (0-2) 05/23/24 18:58 Urine Bacteria (Auto) None Seen (None Seen) 05/23/24 18:58 Impressions Abdomen/Pelvis CT 05/23/24 17:45 EXAM: CT abd pelvis IV con only CLINICAL HISTORY: Fell down approx 4-5 attic steps today. C/o lower back pain radiating down left leg. Abrasion to right knee. Denies head trauma. Denies use of blood thinners. Hx of ITP. 90 ml opti 320 PW/EB INPATIENT TECHNIQUE: CT of the abdomen and pelvis was performed with contrast, with the following protocol: axial images with, and reconstructed coronal and sagittal images. 90 ml opti 320 was administered intravenously. One of the following dose reduction techniques was utilized for this exam: Automated exposure control, adjustment of the mA and/or kV according to patient size, and use of iterative reconstruction. COMPARISON: No previous study for comparison. FINDINGS: Abdomen: Liver: Mildly enlarged fatty liver. No focal lesions, cysts, or masses were identified. Hepatic vasculature and biliary ducts are unremarkable. Gallbladder and Biliary System: The gallbladder is normal in size and shape. No wall thickening, pericholecystic fluid, or gallstones were identified. The common bile duct is normal in caliber without dilation. Pancreas: Pancreatic head, body, and tail are visualized and appear normal in size and density. No pancreatic masses or calcifications were noted. The pancreatic duct is not dilated. Spleen: Normal in size, shape, and density. No splenic lesions or masses were identified. Kidneys and Adrenal Glands: Both kidneys are normal in size, shape, and position. Cortical thickness is within normal limits. No renal calculi or hydronephrosis. Adrenal glands are unremarkable with no evidence of masses or hyperplasia. Pelvis: Urinary Bladder: Normal in contour and wall thickness. No intraluminal lesions identified. Uterus: Not visualized likely excised. Vagina: Normal in contour and wall thickness. Peritoneal and Retroperitoneal Structures: No free fluid or abnormal fluid collections were identified within the abdomen or pelvis. No lymphadenopathy was noted. Bowel: Evidence of appendicectomy with surgical jnoathan. The visualized bowel loops are normal in caliber and appearance. No evidence of bowel obstruction or wall thickening. Bones and Soft Tissues: Degenerative changes of the spine and sacroiliac joints. Pelvic bones and soft tissues are unremarkable. No fractures or abnormal masses were identified. IMPRESSION: Fatty hepatomegaly. Appendicectomy and hysterectomy. No evidence of fractures, dislocations of acute traumatic injury. Electronically signed by Gudelia Herr 05-23-2024 8:23 PM Knee X-Ray 05/23/24 17:45 EXAM: Radiographs of the Right Knee 3 Views INDICATION: Posttraumatic pain. TECHNIQUE: Three views of the right knee. COMPARISON: No relevant prior studies available. FINDINGS: Bones/joints: There is minimal degenerative patellofemoral cortical surface irregularity. Articular surfaces are otherwise unremarkable. There is no fracture, erosion or loose body. No dislocation. Soft tissues: No abnormality noted. No radiopaque foreign body noted. IMPRESSION: Mild patellofemoral primary osteoarthritis. No acute abnormality. ACT 112: Negative or not required by law. Electronically signed by Deborah Bartlett 05-23-2024 6:[address] 05/23/24 17:45 EXAM: CT lumbar spine w con CLINICAL HISTORY: Fell down approx 4-5 attic steps today. C/o lower back pain radiating down left leg. Abrasion to right knee. Denies head trauma. Denies use of blood thinners. Hx of ITP. 90 ml opti 320 PW/EB INPATIENT TECHNIQUE: CT scan with contrast lumbar spine done. 90 ml opti 320 was administered for post-contrast images. Axial images were obtained with reformatted coronal and sagittal images and submitted for interpretation. One of the following dose reduction techniques was utilized for this exam: Automated exposure control, adjustment of the mA and/or kV according to patient size, and use of iterative reconstruction. COMPARISON: None. FINDINGS: Vertebrae: Straightening of the lumbar vertebrae. No fractures, lytic or sclerotic lesions. Decreased bone density. Marginal osteophytosis of the lumbar vertebral end plates. Intervertebral Discs: Narrowed lumbar disc spaces. OBX.5.1OBX.5.1.1 L2-3 7/OBX.5.1.1OBX.5.1.2 L5-S1 mild disc herniations./OBX.5.1.2/OBX.5.1 Spinal Canal and Neural Foramina: OBX.5.1OBX.5.1.1 Mild spinal canal narrowing at L2-3 /OBX.5.1.1OBX.5.1.2 L5-S1 levels./OBX.5.1.2/OBX.5.1 Neural foramina are patent bilaterally at all levels. No evidence of nerve root compression. Facet Joints: Multilevel facet arthropathy. Mild bilateral sacroiliitis. Soft Tissues: Normal appearance of the paraspinal soft tissues. No abnormal masses, fluid collections, or signs of inflammation. Vascular Structures: Tiny vascular calcifications of the aorta and its branches. No evidence of aneurysm, dissection, or significant atherosclerosis. IMPRESSION: OBX.5.1OBX.5.1.11. Spine degenerative changes with L2-3 /OBX.5.1.1OBX.5.1.2 L5-S1 disc herniations./OBX.5.1.2/OBX.5.1 2. No evidence of Acute displaced fractures or dislocation. Electronically signed by Gudelia Herr 05-23-2024 7:[address] 05/23/24 17:45 EXAM: CT thoracic spine w con CLINICAL HISTORY: Fell down approx 4-5 attic steps today. C/o lower back pain radiating down left leg. Abrasion to right knee. Denies head trauma. Denies use of blood thinners. Hx of ITP. 90 ml opti 320 PW/EB INPATIENT TECHNIQUE: Multiple axial images of CT thoracic spine with contrast was submitted in bone and soft tissue window. 90 ml opti 320 was administered for post contrast images. One of the following dose reduction techniques were utilized for this exam: Automated exposure control, adjustment of the mA and/or kV according to patient size, and use of iterative reconstruction. COMPARISON: Multiple CTs on the same day. FINDINGS: Vertebrae: Normal alignment of the thoracic vertebrae. No fractures, lytic or sclerotic lesions. Decreased bone density. Marginal osteophytosis of the thoracic vertebral end plates. Intervertebral Discs: Narrowed disc spaces with multilevel disc calcification. No evidence of disc herniation. Spinal Canal and Neural Foramina: Spinal canal is of normal caliber with no evidence of spinal stenosis. Neural foramina are patent bilaterally at all levels. No evidence of nerve root compression. Facet Joints: Mild multilevel costovertebral, costocervical and facet arthropathy. Soft Tissues: Normal appearance of the paraspinal soft tissues. No abnormal masses, fluid collections, or signs of inflammation. Vascular Structures: Vascular calcification of the aorta and its branches. IMPRESSION: 1. Spine degenerative changes. 2. No evidence of acute displaced fractures. Electronically signed by Gudelia Herr 05-23-2024 7:[address] 05/23/24 18:17 EXAM: CT cervical spine wo con CLINICAL HISTORY: Fell down approx 4-5 attic steps today. C/o lower back pain radiating down left leg. Abrasion to right knee. Denies head trauma. Denies use of blood thinners. Hx of ITP. PW/EB INPATIENT TECHNIQUE: CT scan of the cervical spine was performed without the administration of intravenous contrast. Contiguous axial images were obtained from the skull base to the upper thoracic spine. Coronal and sagittal reformatted images were also reviewed. One of the following dose reduction techniques was utilized for this exam. Automated exposure control, adjustment of the mA and/or kV according to patient size, and use of iterative reconstruction. COMPARISON: Multiple CTs on the same day FINDINGS: Vertebrae: The vertebral bodies are normal in height and alignment. No evidence of acute fracture or dislocation. The cortical and trabecular bone patterns are normal. No signs of lytic or sclerotic lesions. Normal configuration of the posterior elements. Marginal osteophytosis of the cervical vertebral end plates. Intervertebral Discs: OBX.5.1OBX.5.1.1 Narrowed C2-3, C5-6 /OBX.5.1.1OBX.5.1.2 C6-7 disc spaces./OBX.5.1.2/OBX.5.1 No calcifications or ossifications noted within the discs. Facet Joints: Degenerative changes of the atlantoaxial joints. Multilevel facet arthropthy. OBX.5.1OBX.5.1.1 C2-3, C5-6 /OBX.5.1.1OBX.5.1.2 C6-7 neurocentral arthropathy./OBX.5.1.2/OBX.5.1 Neural Foramina: The neural foramina are patent bilaterally at all levels. No evidence of foraminal narrowing or nerve root compression. Prevertebral Soft Tissues: The prevertebral soft tissues are normal in thickness without evidence of mass or abnormal fluid collection. Additional Findings: No other significant findings are noted in the visualized soft tissue structures or bony elements. IMPRESSION: Spine degenerative changes. No evidence of acute fracture or dislocation. Electronically signed by Gudelia Herr 05-23-2024 8:[address] 05/23/24 18:17 EXAM: CT chest diagnostic w con CLINICAL HISTORY: Fell down approx 4-5 attic steps today. C/o lower back pain radiating down left leg. Abrasion to right knee. Denies head trauma. Denies use of blood thinners. Hx of ITP. 90 ml opti 320 PW/EB INPATIENT TECHNIQUE: Contiguous 3.[address] images of the chest were acquired with the administration of intravenous contrast. Coronal and sagittal reconstructions were obtained. 90 ml opti 320 was administered for post-contrast images. One of the following dose reduction techniques was utilized for this exam: Automated exposure control, adjustment of the mA and/or kV according to patient size, and use of iterative reconstruction COMPARISON: 05/17/2023 was reviewed. FINDINGS: Lungs: Lungs are clear with no evidence of consolidation, collapse, or focal lesions. No ground-glass opacities or interstitial changes. No pleural effusion or pleural thickening. Mediastinum: No mediastinal mass or abnormal lymphadenopathy. Normal appearance of the thymus. Hilar Structures: Normal size and configuration, no enlargement. Heart and Great Vessels: Normal heart size and configuration. No pericardial effusion. Normal caliber and course of the thoracic aorta and other great vessels. No dissection or aneurysm. Vascualr calcification of the aorta and its branches. Normal enhancement of the great vessels post-contrast. Pulmonary Arteries: No evidence of pulmonary embolism. Normal size and course of the pulmonary arteries. Esophagus: Normal course and caliber. No masses or dilatation. Bones: No fractures or lytic/sclerotic lesions. Normal bone density and alignment. No evidence of rib fractures. Spine degenerative changes with multilevel disc calcification. Chest Wall: No masses or soft tissue abnormalities. Upper Abdomen: Visualized portions of the liver, spleen, pancreas, adrenal glands, and kidneys are normal. No abnormalities were noted in the visualized upper abdominal organs. Thyroid: Normal size and morphology. No nodules or masses. IMPRESSION: 1. No evidence of fracture, dislocation or significant acute traumatic injury. 2. Spine degenerative changes. Electronically signed by Gudelia Herr 05-23-2024 8:[address] 05/23/24 18:17 EXAM: CT head/brain wo con CLINICAL HISTORY: Fell down approx 4-5 attic steps today. C/o lower back pain radiating down left leg. Abrasion to right knee. Denies head trauma. Denies use of blood thinners. Hx of ITP. PW/EB INPATIENT TECHNIQUE: Axial non-contrast CT scan of the brain was performed from the skull base to the high parietal region. One of the following dose reduction techniques were utilized for this exam: Automated exposure control, adjustment of the mA and/or kV according to patient size, use of iterative reconstruction. CTDI: , DLP: COMPARISON: Multiple CTs on the same day FINDINGS: Brain Parenchyma: Normal attenuation of the cerebral hemispheres, cerebellum, and brainstem. No evidence of acute infarct, hemorrhage, or mass effect. No abnormal areas of hypo- or hyperattenuation. Ventricular System: Prominent lateral ventricles. Subarachnoid Spaces: Accentuated cortical sulci and cisterns. No evidence of subarachnoid hemorrhage or extra-axial fluid collections. Cerebellum and Brainstem: Normal size and signal. No masses, lesions, or areas of abnormal signal. Orbits: Normal appearance of the globes, optic nerves, and extraocular muscles. No evidence of orbital masses or abnormal signals. Sinuses: Clear paranasal sinuses. No evidence of sinusitis or mucosal thickening. Mastoid Air Cells: Clear mastoid air cells. No evidence of mastoiditis. Skull and Meninges: Normal skull morphology. No displaced calvarial or skull base fractures. IMPRESSION: 1. Involutional brain changes. 2. No evidence of acute intracranial injury. Electronically signed by Gudelia eHrr 05-23-2024 8:04 PM Code Status & VTE Plan Code Status Full code VTE Prophylaxis Plan VTE Prophylaxis will be ordered: Yes PG Care Time/CCT Total # of Minutes Spent Total Time Spent with Patient: Total time spent is greater than 50% in coordination of care (as documented) at patient's floor/unit and/or counseling patient: Coding Level of Care Code 59896 INT INP/OBS CARE 3/75MIN Diagnoses Lumbar contusion S30.0XXA Encounter type: initial encounter Fall W19.XXXA Encounter type: initial encounter Lumbar back pain with radiculopathy affecting left lower extremity M54.16 Contusion of knee, right S80.01XA Encounter type: initial encounter Situational mixed anxiety and depressive disorder F43.23 Lumbar degenerative disc disease M51.36 Chronic idiopathic thrombocytopenic purpura D69.3 (1) Lumbar contusion Encounter type: initial encounter Qualified Code(s): S30.0XXA - Contusion of lower back and pelvis, initial encounter (2) Fall Encounter type: initial encounter Qualified Code(s): W19.XXXA - Unspecified fall, initial encounter (4) Contusion of knee, right Encounter type: initial encounter Qualified Code(s): S80.01XA - Contusion of right knee, initial encounter
[2024-05-23] MEDS: BACLOFEN 20 MG TAB PO STA (22:04)
[2024-05-23] MEDS: LIDOCAINE 5% 1 PATCH TD STA (22:15)
[2024-05-23] MEDS: DEXAMETHASONE SOD INJ 4 MG/ML VIAL IV STA (22:16)
[2024-05-24] MEDS ORDERED: CYCLOBENZAPRINE HCL 10 MG TAB PO PRN (00:33)
[2024-05-24] MEDS ORDERED: ACETAMINOPHEN 325 MG TAB PO PRN (00:33)
[2024-05-24] MEDS ORDERED: ALBUTEROL HFA 8 GM INHALER INH PRN (00:33)
[2024-05-24] MEDS ORDERED: LORazepam 0.5 MG TAB PO PRN (00:33)
[2024-05-24] MEDS ORDERED: ONDANSETRON INJ 2 MG/ML 2 ML VIAL IV PRN (00:33)
[2024-05-24] MEDS: HYDROmorphone INJ 0.5 MG/0.5 ML SYR IV PRN (01:11)
[2024-05-24] MEDS: HYDROCODONE/ACETAMOPHEN 5/325MG TAB PO PRN (07:25)
[2024-05-24 07:39] VITALS: RESP 14
[2024-05-24] MEDS: PANTOprazole 40 MG TAB PO SCH (08:58)
[2024-05-24] MEDS: dexAMETHasone 6 MG in SYRINGE 0 ML IV SCH (08:58)
[2024-05-24 09:34] LABS: Anion Gap 8 (3-11); BUN Creatinine Ratio 17.2 (10-20); Blood Urea Nitrogen 20 mg/dl (6-23); Calcium 9.5 mg/dl (8.6-10.3); Carbon Dioxide 24 mmol/L (21-32); Chloride 107 mmol/L (98-107); Creatinine Clr Calc Pharmacy 47.5 ml/min; Glucose 145 mg/dl (70-99(Fasting)); Sodium 139 mmol/L (136-145)
[2024-05-24 11:20] VITALS: BP 143/80; PULSE 90; TEMP 97.9; O2SAT 95
--- NOTE | 2024-05-24 14:31 | Discharge Summary ---
Discharge Summary Date of Service May 24, 2024 Principal Dx & Hospital Course #1 = Principal Diagnosis (1) Lumbar back pain with radiculopathy affecting left lower extremity: Lumbar contusion, with aggravation of existing condition, status post fall Workup for fall include the following imaging: CT scan of head, cervical spine, thoracic spine, chest, were normal CT scan of abdomen and pelvis showed fatty liver, status post appendectomy and status post hysterectomy CT scan of the lumbar spine showed degenerative spine changes at L2-3, and L5-S1 herniation, with no evidence of acute process - received IV dexamethasone with great effect, will discharge with p.o. dexamethasone taper as patient has not tolerated prednisone well in the past - Pain control: Tylenol, Wales, lidocaine patch, as needed cyclobenzaprine patient ambulating in the room without need of walker with limited pain day of discharge. Feels comfortable going home and has family support for heavy lifting and other ADLs. (2) Situational mixed anxiety and depressive disorder: Stable continue home meds. (3) Chronic idiopathic thrombocytopenic purpura: Stable. Platelets 123-day of discharge. Plan Dispo: Home today with family Family updated at bedside 05/24 Admission HPI Per Admitting Provider The patient is a 69-year-old female with a past medical history including laryngopharyngeal reflux, chronic low back pain with left lower extremity radiculopathy, chronic ITP, muscle spasm, GERD, anxiety, and weight loss management. She presents to the emergency department as noted above. Discharge Exam General: NAD, VS as above Resp: normal respiratory effort, lungs clear to auscultation CV: RRR, no murmur, Extremities: Moves all extremities, no edema Back: nontender to palpation, no obvious deformity Neuro: A&O x3, Skin: intact, no lesions noted Discharge Plan Discharge Items Patient Disposition: Home - Self-Care Reason For Visit: INTRACTABLE LBP S/P FALL Discharge Diagnosis: Low back pain Activity: Resume your previous activity Non-emergency contact: Primary Care Provider Call non-emergency contact if: you have any medication questions and your pain is not controlled Follow-up/Referrals: John Magaña DO [Primary Care Provider] - (please follow up within 7 days ) Diet: Heart Healthy Addtl Attending Provider Instructions: Ms. Acevedo, You were hospitalized after having pain from a fall. Thankfully, you workup here did not show any acute changes or fractures, etc. It did show chronic degenerative changes and a herniated disk at L5-S1. Your pain is likely an exacerbation of these chronic conditions plus the impact of the fall. You will be sent in dexamethasone taper to continue - this is a steroid and pain medication. The pain medication - Wales, does contain 325mg of tylenol per dose. If you are taking additional tylenol do not exceed 3,000mg total in 24 hours. You can purchase lidocaine patches over the counter for help with the pain. If the spasms return, would recommend using home cyclobenzaprine. please be careful as opioid medications can be constipating, use [id number] MiraLAX, Colace or senna as needed to prevent constipation If over the next few weeks you do not return to baseline, would recommend discussing with your PCP, may need outpatient physical therapy. You had a slight bump in your kidney function when you arrive, this has resolved by discharge. This may have been from dehydration. Make sure you are staying hydrated, and be cautious with the use of NSAID (ibuprofen, aleve, naproxen, etc). Activity: You can do normal everyday activities as your body allows. Take rest breaks if you feel tired. Do not overexert. Stop activity if you have pain, shortness of breath or feel dizzy. Follow-up appointments: Make an appointment with your primary care physician within one week of discharge. A copy of this summary will be sent to them. Every time you see your primary care physician, or any other doctor, bring your medication list, and a list of questions. CONTACT YOUR PRIMARY CARE PROVIDER if you experience any of the following: Shortness of breath or difficulty breathing Fevers or chills Feeling tired with normal activity or experiencing dizziness or fainting Difficulty following your treatment plan, or difficulty taking medications CALL 911 OR GO TO THE EMERGENCY DEPARTMENT if you experience any of the following: Severe abdominal pain or nausea/vomiting Severe chest pain, or chest pain that radiates (moves) to your jaw or arm Sudden, severe shortness of breath or difficulty breathing Thank you for allowing us to participate in your care. Alexus Molina PA-C Pending Studies at Discharge: No Stand-Alone Forms: [facility], Pain - Opioid Pain Management, Smoking Cessation Medications and DC Order Prescriptions: New hydrocodone-acetaminophen 5-325 mg Tablet 1 tab PO Q4H PRN (Reason: pain) 10 Days Qty: 30 0RF dexamethasone 2 mg tablet See Taper PO DAILY Qty: 15 0RF Taper: Taper, Blank 6 mg DAILY for 2 Days 4 mg DAILY for 3 Days 2 mg DAILY for 3 Days Continued albuterol sulfate [ProAir HFA] 90 mcg/actuation HFA aerosol inhaler 2 puff inhalation QID PRN (Reason: shortness of breath or wheezing) Qty: 8.5 1RF lorazepam 0.5 mg tablet 0.5 mg PO QID PRN (Reason: anxiety) Qty: 60 2RF cyclobenzaprine 5 mg tablet 5 mg PO TID PRN (Reason: muscle spasm) Qty: 90 1RF (DME) spacer tube See Rx Instructions .Route .MEDSUPPLY Qty: 1 0RF Rx Instructions: As directed All Day Allergy (cetirizine) 10 mg capsule 10 mg PO DAILY PRN (Reason: Allergy Symptoms) esomeprazole magnesium [Nexium] 40 mg capsule,delayed release(DR/EC) 40 mg PO .AM famotidine [Pepcid] 40 mg tablet 40 mg PO HS phentermine 15 mg capsule 15 mg PO DAILY Qty: 30 0RF Rx Instructions: must administer 2 hours after breakfast Magic Mouthwash 300 mL mouthwash 5 ml mucous membrane Q2H PRN (Reason: sore throat) Qty: 300 0RF Rx Instructions: Benadryl 12.5 mg/5 mL oral elixir; Maalox 200 mg-200 mg-20 mg/5 mL oral suspension; Xylocaine Viscous 2 % mucosal solution;[Generic substitution ok] 1:1:1 compound Per 300 mL Discharge Orders: Discharge Order (Routine); Ordered 05/24/24 Ordered By: Alexus Molina Admission Data Admit Date/Time: 05/23/24 21:57 Attending Provider: Serg Nunez Admit Provider: Willian Chiu Primary Care Provider: John Magaña Other Providers: Willian Chiu Other Interventions: Discharge Summary Assessment (RN) Last Done: 05/24/24 15:12 Hospital Stay Data Consultations 05/23/24 20:40 ED Decision to Admit Stat Diagnostic Imagining Performed Abdomen/Pelvis CT 05/23/24 17:45 EXAM: CT abd pelvis IV con only CLINICAL HISTORY: Fell down approx 4-5 attic steps today. C/o lower back pain radiating down left leg. Abrasion to right knee. Denies head trauma. Denies use of blood thinners. Hx of ITP. 90 ml opti 320 PW/EB INPATIENT TECHNIQUE: CT of the abdomen and pelvis was performed with contrast, with the following protocol: axial images with, and reconstructed coronal and sagittal images. 90 ml opti 320 was administered intravenously. One of the following dose reduction techniques was utilized for this exam: Automated exposure control, adjustment of the mA and/or kV according to patient size, and use of iterative reconstruction. COMPARISON: No previous study for comparison. FINDINGS: Abdomen: Liver: Mildly enlarged fatty liver. No focal lesions, cysts, or masses were identified. Hepatic vasculature and biliary ducts are unremarkable. Gallbladder and Biliary System: The gallbladder is normal in size and shape. No wall thickening, pericholecystic fluid, or gallstones were identified. The common bile duct is normal in caliber without dilation. Pancreas: Pancreatic head, body, and tail are visualized and appear normal in size and density. No pancreatic masses or calcifications were noted. The pancreatic duct is not dilated. Spleen: Normal in size, shape, and density. No splenic lesions or masses were identified. Kidneys and Adrenal Glands: Both kidneys are normal in size, shape, and position. Cortical thickness is within normal limits. No renal calculi or hydronephrosis. Adrenal glands are unremarkable with no evidence of masses or hyperplasia. Pelvis: Urinary Bladder: Normal in contour and wall thickness. No intraluminal lesions identified. Uterus: Not visualized likely excised. Vagina: Normal in contour and wall thickness. Peritoneal and Retroperitoneal Structures: No free fluid or abnormal fluid collections were identified within the abdomen or pelvis. No lymphadenopathy was noted. Bowel: Evidence of appendicectomy with surgical jonathan. The visualized bowel loops are normal in caliber and appearance. No evidence of bowel obstruction or wall thickening. Bones and Soft Tissues: Degenerative changes of the spine and sacroiliac joints. Pelvic bones and soft tissues are unremarkable. No fractures or abnormal masses were identified. IMPRESSION: Fatty hepatomegaly. Appendicectomy and hysterectomy. No evidence of fractures, dislocations of acute traumatic injury. Electronically signed by Gudelia Herr 05-23-2024 8:23 PM Knee X-Ray 05/23/24 17:45 EXAM: Radiographs of the Right Knee 3 Views INDICATION: Posttraumatic pain. TECHNIQUE: Three views of the right knee. COMPARISON: No relevant prior studies available. FINDINGS: Bones/joints: There is minimal degenerative patellofemoral cortical surface irregularity. Articular surfaces are otherwise unremarkable. There is no fracture, erosion or loose body. No dislocation. Soft tissues: No abnormality noted. No radiopaque foreign body noted. IMPRESSION: Mild patellofemoral primary osteoarthritis. No acute abnormality. ACT 112: Negative or not required by law. Electronically signed by Deborah Bartlett 05-23-2024 6:[address] 05/23/24 17:45 EXAM: CT lumbar spine w con CLINICAL HISTORY: Fell down approx 4-5 attic steps today. C/o lower back pain radiating down left leg. Abrasion to right knee. Denies head trauma. Denies use of blood thinners. Hx of ITP. 90 ml opti 320 PW/EB INPATIENT TECHNIQUE: CT scan with contrast lumbar spine done. 90 ml opti 320 was administered for post-contrast images. Axial images were obtained with reformatted coronal and sagittal images and submitted for interpretation. One of the following dose reduction techniques was utilized for this exam: Automated exposure control, adjustment of the mA and/or kV according to patient size, and use of iterative reconstruction. COMPARISON: None. FINDINGS: Vertebrae: Straightening of the lumbar vertebrae. No fractures, lytic or sclerotic lesions. Decreased bone density. Marginal osteophytosis of the lumbar vertebral end plates. Intervertebral Discs: Narrowed lumbar disc spaces. OBX.5.1OBX.5.1.1 L2-3 7/OBX.5.1.1OBX.5.1.2 L5-S1 mild disc herniations./OBX.5.1.2/OBX.5.1 Spinal Canal and Neural Foramina: OBX.5.1OBX.5.1.1 Mild spinal canal narrowing at L2-3 /OBX.5.1.1OBX.5.1.2 L5-S1 levels./OBX.5.1.2/OBX.5.1 Neural foramina are patent bilaterally at all levels. No evidence of nerve root compression. Facet Joints: Multilevel facet arthropathy. Mild bilateral sacroiliitis. Soft Tissues: Normal appearance of the paraspinal soft tissues. No abnormal masses, fluid collections, or signs of inflammation. Vascular Structures: Tiny vascular calcifications of the aorta and its branches. No evidence of aneurysm, dissection, or significant atherosclerosis. IMPRESSION: OBX.5.1OBX.5.1.11. Spine degenerative changes with L2-3 /OBX.5.1.1OBX.5.1.2 L5-S1 disc herniations./OBX.5.1.2/OBX.5.1 2. No evidence of Acute displaced fractures or dislocation. Electronically signed by Gudelia Herr 05-23-2024 7:[address] 05/23/24 17:45 EXAM: CT thoracic spine w con CLINICAL HISTORY: Fell down approx 4-5 attic steps today. C/o lower back pain radiating down left leg. Abrasion to right knee. Denies head trauma. Denies use of blood thinners. Hx of ITP. 90 ml opti 320 PW/EB INPATIENT TECHNIQUE: Multiple axial images of CT thoracic spine with contrast was submitted in bone and soft tissue window. 90 ml opti 320 was administered for post contrast images. One of the following dose reduction techniques were utilized for this exam: Automated exposure control, adjustment of the mA and/or kV according to patient size, and use of iterative reconstruction. COMPARISON: Multiple CTs on the same day. FINDINGS: Vertebrae: Normal alignment of the thoracic vertebrae. No fractures, lytic or sclerotic lesions. Decreased bone density. Marginal osteophytosis of the thoracic vertebral end plates. Intervertebral Discs: Narrowed disc spaces with multilevel disc calcification. No evidence of disc herniation. Spinal Canal and Neural Foramina: Spinal canal is of normal caliber with no evidence of spinal stenosis. Neural foramina are patent bilaterally at all levels. No evidence of nerve root compression. Facet Joints: Mild multilevel costovertebral, costocervical and facet arthropathy. Soft Tissues: Normal appearance of the paraspinal soft tissues. No abnormal masses, fluid collections, or signs of inflammation. Vascular Structures: Vascular calcification of the aorta and its branches. IMPRESSION: 1. Spine degenerative changes. 2. No evidence of acute displaced fractures. Electronically signed by Gudelia Herr 05-23-2024 7:[address] 05/23/24 18:17 EXAM: CT cervical spine wo con CLINICAL HISTORY: Fell down approx 4-5 attic steps today. C/o lower back pain radiating down left leg. Abrasion to right knee. Denies head trauma. Denies use of blood thinners. Hx of ITP. PW/EB INPATIENT TECHNIQUE: CT scan of the cervical spine was performed without the administration of intravenous contrast. Contiguous axial images were obtained from the skull base to the upper thoracic spine. Coronal and sagittal reformatted images were also reviewed. One of the following dose reduction techniques was utilized for this exam. Automated exposure control, adjustment of the mA and/or kV according to patient size, and use of iterative reconstruction. COMPARISON: Multiple CTs on the same day FINDINGS: Vertebrae: The vertebral bodies are normal in height and alignment. No evidence of acute fracture or dislocation. The cortical and trabecular bone patterns are normal. No signs of lytic or sclerotic lesions. Normal configuration of the posterior elements. Marginal osteophytosis of the cervical vertebral end plates. Intervertebral Discs: OBX.5.1OBX.5.1.1 Narrowed C2-3, C5-6 /OBX.5.1.1OBX.5.1.2 C6-7 disc spaces./OBX.5.1.2/OBX.5.1 No calcifications or ossifications noted within the discs. Facet Joints: Degenerative changes of the atlantoaxial joints. Multilevel facet arthropthy. OBX.5.1OBX.5.1.1 C2-3, C5-6 /OBX.5.1.1OBX.5.1.2 C6-7 neurocentral arthropathy./OBX.5.1.2/OBX.5.1 Neural Foramina: The neural foramina are patent bilaterally at all levels. No evidence of foraminal narrowing or nerve root compression. Prevertebral Soft Tissues: The prevertebral soft tissues are normal in thickness without evidence of mass or abnormal fluid collection. Additional Findings: No other significant findings are noted in the visualized soft tissue structures or bony elements. IMPRESSION: Spine degenerative changes. No evidence of acute fracture or dislocation. Electronically signed by Gudelia Herr 05-23-2024 8:[address] 05/23/24 18:17 EXAM: CT chest diagnostic w con CLINICAL HISTORY: Fell down approx 4-5 attic steps today. C/o lower back pain radiating down left leg. Abrasion to right knee. Denies head trauma. Denies use of blood thinners. Hx of ITP. 90 ml opti 320 PW/EB INPATIENT TECHNIQUE: Contiguous 3.[address] images of the chest were acquired with the administration of intravenous contrast. Coronal and sagittal reconstructions were obtained. 90 ml opti 320 was administered for post-contrast images. One of the following dose reduction techniques was utilized for this exam: Automated exposure control, adjustment of the mA and/or kV according to patient size, and use of iterative reconstruction COMPARISON: 05/17/2023 was reviewed. FINDINGS: Lungs: Lungs are clear with no evidence of consolidation, collapse, or focal lesions. No ground-glass opacities or interstitial changes. No pleural effusion or pleural thickening. Mediastinum: No mediastinal mass or abnormal lymphadenopathy. Normal appearance of the thymus. Hilar Structures: Normal size and configuration, no enlargement. Heart and Great Vessels: Normal heart size and configuration. No pericardial effusion. Normal caliber and course of the thoracic aorta and other great vessels. No dissection or aneurysm. Vascualr calcification of the aorta and its branches. Normal enhancement of the great vessels post-contrast. Pulmonary Arteries: No evidence of pulmonary embolism. Normal size and course of the pulmonary arteries. Esophagus: Normal course and caliber. No masses or dilatation. Bones: No fractures or lytic/sclerotic lesions. Normal bone density and alignment. No evidence of rib fractures. Spine degenerative changes with multilevel disc calcification. Chest Wall: No masses or soft tissue abnormalities. Upper Abdomen: Visualized portions of the liver, spleen, pancreas, adrenal glands, and kidneys are normal. No abnormalities were noted in the visualized upper abdominal organs. Thyroid: Normal size and morphology. No nodules or masses. IMPRESSION: 1. No evidence of fracture, dislocation or significant acute traumatic injury. 2. Spine degenerative changes. Electronically signed by Gudelia Herr 05-23-2024 8:[address] 05/23/24 18:17 EXAM: CT head/brain wo con CLINICAL HISTORY: Fell down approx 4-5 attic steps today. C/o lower back pain radiating down left leg. Abrasion to right knee. Denies head trauma. Denies use of blood thinners. Hx of ITP. PW/EB INPATIENT TECHNIQUE: Axial non-contrast CT scan of the brain was performed from the skull base to the high parietal region. One of the following dose reduction techniques were utilized for this exam: Automated exposure control, adjustment of the mA and/or kV according to patient size, use of iterative reconstruction. CTDI: , DLP: COMPARISON: Multiple CTs on the same day FINDINGS: Brain Parenchyma: Normal attenuation of the cerebral hemispheres, cerebellum, and brainstem. No evidence of acute infarct, hemorrhage, or mass effect. No abnormal areas of hypo- or hyperattenuation. Ventricular System: Prominent lateral ventricles. Subarachnoid Spaces: Accentuated cortical sulci and cisterns. No evidence of subarachnoid hemorrhage or extra-axial fluid collections. Cerebellum and Brainstem: Normal size and signal. No masses, lesions, or areas of abnormal signal. Orbits: Normal appearance of the globes, optic nerves, and extraocular muscles. No evidence of orbital masses or abnormal signals. Sinuses: Clear paranasal sinuses. No evidence of sinusitis or mucosal thickening. Mastoid Air Cells: Clear mastoid air cells. No evidence of mastoiditis. Skull and Meninges: Normal skull morphology. No displaced calvarial or skull base fractures. IMPRESSION: 1. Involutional brain changes. 2. No evidence of acute intracranial injury. Electronically signed by Gudelia Herr 05-23-2024 8:04 PM Pending Results Patient Have Any Pending Studies at Discharge: No Discharge Instructions Given to Patient (Per Discharging Provider) Ms. Acevedo, You were hospitalized after having pain from a fall. Thankfully, you workup here did not show any acute changes or fractures, etc. It did show chronic degenerative changes and a herniated disk at L5-S1. Your pain is likely an exacerbation of these chronic conditions plus the impact of the fall. You will be sent in dexamethasone taper to continue - this is a steroid and pain medication. The pain medication - [place], does contain 325mg of tylenol per dose. If you are taking additional tylenol do not exceed 3,000mg total in 24 hours. Yo u can purchase lidocaine patches over the counter for help with the pain. If the spasms return, would recommend using home cyclobenzaprine. please be careful as opioid medications can be constipating, use [id number] MiraLAX, Colace or senna as needed to prevent constipation If over the next few weeks you do not return to baseline, would recommend discussing with your PCP, may need outpatient physical therapy. You had a slight bump in your kidney function when you arrive, this has resolved by discharge. This may have been from dehydration. Make sure you are staying hydrated, and be cautious with the use of NSAID (ibuprofen, aleve, naproxen, etc). Activity: You can do normal everyday activities as your body allows. Take rest breaks if you feel tired. Do not overexert. Stop activity if you have pain, shortness of breath or feel dizzy. Follow-up appointments: Make an appointment with your primary care physician within one week of discharge. A copy of this summary will be sent to them. Every time you see your primary care physician, or any other doctor, bring your medication list, and a list of questions. CONTACT YOUR PRIMARY CARE PROVIDER if you experience any of the following: Shortness of breath or difficulty breathing Fevers or chills Feeling tired with normal activity or experiencing dizziness or fainting Difficulty following your treatment plan, or difficulty taking medications CALL 911 OR GO TO THE EMERGENCY DEPARTMENT if you experience any of the following: Severe abdominal pain or nausea/vomiting Severe chest pain, or chest pain that radiates (moves) to your jaw or arm Sudden, severe shortness of breath or difficulty breathing Thank you for allowing us to participate in your care. Alexus Molina PA-C Supervising Physician Co-Signing Physician Notes Attending Attestation & Discharge Note: Chart reviewed in detail, discharge care plan d/w BHAVNA Molina. I agree w/ the rowell components of her discharge documentation. Of note - I did NOT perform a physical exam or bedside visit of Ms Acevedo on day of discharge. 69yo female with h/o GERD, lumbar spine DJD, and ITP who presented after a fall. This led to severe back pain and left leg pain. Extensive imaging of the head/chest/abd/pelvis as well as c-spine/t-spine/l-spine did NOT show evidence of internal injuries, fractures or bleeding. L-spine CT showed DJD particularly at L5-S1. Placed on IV steroids & pain meds for her back/LLE pain. Pain improved with such and she was ambulating on her accord prior to discharge home. She was placed on a steroid course upon return home. Other medical problems including her ITP were stable while here. Serg Nunez MD Total Time Total Time Spent Total Time Spent (In Minutes): Time spent day of discharge 36 minutes including direct patient care, medication reconciliation, documentation, review of labs and images, and coordination of care. Coding Level of Care Code 78921 INP/OBS DISCH >30 MIN Diagnoses Lumbar back pain with radiculopathy affecting left lower extremity M54.16 Situational mixed anxiety and depressive disorder F43.23 Chronic idiopathic thrombocytopenic purpura D69.3
[2024-05-24] MEDS ORDERED: LIDOCAINE 5% 1 PATCH TD SCH (21:00)
[2024-05-24] MEDS ORDERED: FAMOTIDINE 40 MG TABLET PO SCH (21:00)
== END 2024-05-24 15:57 | disposition home or self-care (01) ==
LOC: 3E 16:55 → ED 16:55 → SUATTDRO 21:57 → 3E 05-24 00:06
DX: F43.23 Adjustment disorder with mixed anxiety and depressed mood; Z88.8 Allergy status to other drugs, medicaments and biological substances; Z88.1 Allergy status to other antibiotic agents; D69.3 Immune thrombocytopenic purpura; S30.0XXA Contusion of lower back and pelvis, initial encounter; S30.1XXA Contusion of abdominal wall, initial encounter; Z79.899 Other long term (current) drug therapy; E66.9 Obesity, unspecified; S80.01XA Contusion of right knee, initial encounter; M54.16 Radiculopathy, lumbar region; W10.9XXA Fall (on) (from) unspecified stairs and steps, initial encounter